=== PATIENT | female | born 1985 | race Caucasian/White ===

== ENCOUNTER 2017-04-11 08:54 | Emergency (ER) | payer OTHER ==
[~2017-04-11] VITALS: Ht 172.7 cm; Wt 131.4 kg
[~2017-04-11 08:54] MED LIST: DOCU-41 PO; Docusate Sodium PO; FERR-83 PO; IBUP800T28 PO; Ibuprofen PO; OXYC1TAB24 PO; Oxycodone/Acetaminophen PO; no meds
[2017-04-11 08:56] VITALS: BP 144/93; PULSE 91; RESP 18; O2SAT 99
--- NOTE | 2017-04-11 09:16 | ED.REPORT ---
HPI-Extremity Problem Lower Date of Service Apr 11, 2017 ED Provider: Dr. Armstrong Pt is a generally healthy 32 week 32 y/o female presenting to the ED c/ o right lateral buttock pain radiating to the knee onset yesterday. The patient was experiencing mild pain last night at work which gradually increased throughout the evening and has persisted this morning. Her pain is exacerbated by walking or movement. She denies any injury or history of similar symptoms. Pt denies edema, fever, chills, numbness, weakness, rash. She tried Tylenol this morning without relief. She has no history of complications or history of PE or DVT. Nursing Notes Stated Complaint: RT OUTSIDE THIGH PAIN Chief Complaint: General Complaint Nursing Notes Reviewed: Yes ([id number] outdoors, Nanobiotix not reconciled) Allergies: Coded Allergies: latex (Verified Allergy, Unknown, Rash,Itching,, 01/26/16) Scheduled PRN Hydrocodone-Acetaminophen 5-325 mg (Hydrocodone-Acetaminophen 5-325 mg) 1 Each Tablet 1-2 TABLET PO Q4H PRN PRN For Pain Miscellaneous Medications Pnv No.122/Iron/Folic Acid ( Multi Tablet) 27 Mg Iron-800 Mcg Tablet 1 EACH PO General Time Seen by MD: 09:15 Chief Complaint Other (r buttock pain) Hx Obtained From: Patient Arrived By: Walk-in Onset Occurred: 9 - 12 hours ago Symptom Duration: Since onset Location: : Hip right Quality: Painful Severity: Current: Mild Severity: Maximum: Moderate Exacerbated by: Range of motion Recent Healthcare: No recent hospitalization Similar Sx Previous: No Past Medical History Past Medical History Healthy, currently (03/2017) Past Surgical History Reports: Smoking History Current Some Day Smoker Social History Alcohol Use: Denies alcohol use Drug Use: Denies drug use Ambulatory Status Independent Review of Systems Constitutional: Denies: Chills, Fever Musculoskeletal: Reports: Extremity pain, Denies: Extremity swelling Skin: Denies Rash Neurologic: Denies: Numbness, Weakness Complete sys rev & neg: except as marked. Physical Exam Initial Vital Signs Vital Signs (First) Date Time Temp Pulse Resp B/P Pulse Ox O2 Delivery O2 Flow Rate FiO2 04/11/17 08:56 36.6 91 18 144/93 99 Room Air Initial VS: Reviewed, Vital signs normal Head / Eyes: Atraumatic, Normocephalic, PERRL ENT: Mucous membranes moist, Conjunctiva normal, No scleral icterus Neck: Supple, Full range of motion Respiratory: Breath sounds normal, Clear to auscultation, No respiratory distress Cardiovascular: Regular rate & rhythm, Heart sounds normal, Intact distal pulses Upper Extremities: Vascular intact, Neuro intact, No swelling Skin: Warm, Dry, No cyanosis Neurologic: Alert, Oriented, Nonfocal Psychiatric: Mood/affect normal, Behavior normal, Normal thought content Lower Extremity / Pelvis / MS: Atraumatic, Inspection NL, Full range of motion , No swelling, Non-tender, No erythema, No deformity, Neurologic intact, Vascular intact, No ligamentous injury, Tendon function NL, No compartment syndrome, No circumferential injury, No edema, Pelvis stable, Pelvis non-tender Ankle / Foot: Atraumatic, Inspection NL, Full range of motion, No swelling, No erythema, Non-tender, No deformity, Neurologic intact, Vascular intact, No ligamentous injury, Tendon function NL, No compartment syndrome, No circumferential injury, No edema General/Constitutional: Awake, Alert, No acute distress, Well appearing, Cooperative, Not toxic appearing Abdomen: Atraumatic, Soft, Non-tender, No guarding, No rebound Gravid Back: Full range of motion, Painless range of motion, Straight leg raise neg Interpretation & Diagnostics US Focused Lower Ext Venous Exam Performed by: Allied health pract Exam Interpreted by: Allied health pract Indication: Leg pain right Interpretation: No evid deep vein thromb Re-Eval/Medical Decision Med Decision/Clinical Course This is a 32-year-old female who third trimester presents to plan of right thigh pain started yesterday, no clear trauma, the worsened this morning. She has no previous history of DVT or PE, his only risk factor for DVT is . She denies pain radiation below the knee to suggest sciatica, denies bowel or bladder dysfunction, denies fevers or chills. She has no abdominal complaints. She has not noted any swelling. On exam, she has some soreness with movement, but is fairly minimal and is neurovascularly intact without overt swelling. She has a negative straight leg raise. The rest of her exams normal. She had no relief with Tylenol. Her CO2 hydrocodone with improvement. An ultrasound of right leg was obtained was negative. I do not appreciate signs of DVT, cellulitis, abscess, with ultrasound negative and not finding indication for additional testing. Patient's comfortable with discharge to home. Routine precautions reviewed. Source of Hx: Old records Re-Evaluation/Progress : Time of Eval: 11:41 Re-Evaluation/Progress Note: Pt rechecked. Discussed imaging results. Informed pt of plan for treatment. Pt understands and agrees with plan for treatment. F/U instructions and RTER warnings given. All questions addressed. Differential Diagnosis: Negative: Abrasion, Abscess, Achilles tendon rupture, Ankle dislocation, Arterial occlus/ischemia, Femur fracture, Fibular fracture, Fracture, Hip fracture, Knee disloc ant, Knee disloc post, Knee effusion, Knee ligament injury, Venous thromboembolism Counseled Regarding: Diagnosis, Need for follow-up, When/why to return to ED Discharge & Departure Impression: Primary Impression: Musculoskeletal pain of right thigh Additional Impression: Weeks of gestation: unspecified Qualified Code: Z33.1 - state, incidental Disposition: Home Discharge Condition All VS Reviewed: Yes Condition: Stable Additional Instructions: 1. A dangerous cause the pain was not identified. 2. The ultrasound was negative for blood clot such as a DVT, or findings of infection. 3. Activities as tolerated, although take it easy. 4. If needed for pain and take hydrocodone/APAP 5/325 1-2 tabs up to every 6 hours. NOTE: His medication does contain some Tylenol, it also contains a narcotic and causes some dizziness and drowsiness. Use sparingly, and no driving for at least 4 hours after taking 5. Apply warm packs for comfort. 6. Return if new or worsening symptoms occur. Symptoms are expected to resolve with time. Referrals: Aquilino Mclaughlin MD (PCP) [place] Attestation Portions of this note were transcribed by Andrei Mcfarland. I, Dr. Armstrong personally performed the history, physical exam and medical decision-making; I reviewed and confirmed the accuracy of the information in the transcribed note. Signed by Aurelio Hull, 04/11/17 - 1000 copies to: Aquilino Mclaughlin MD, Matthew F MD Apr 11, 2017 09:16 ANDREI MCFARLAND Apr 11, 2017 09:34
[2017-04-11] MEDS ORDERED: HYDROcodone-APAP 5-325 mg Tablet PO ONE (09:35)
[2017-04-11] MEDS ORDERED: PNV1TABL81 PO (09:50)
[2017-04-11] MEDS ORDERED: HYDR-4003 PO (11:45)
[2017-04-11 12:03] VITALS: BP 132/65; PULSE 77; RESP 16; O2SAT 98
--- NOTE | 2017-04-11 12:43 | DRSVH ---
PROCEDURE: US VEINOUS LEG DUPLEX UNILATERAL, RIGHT INDICATIONS: RLE pain r/o DVT TECHNIQUE: Real-time imaging, as well as color and pulse Doppler interrogation, were performed of the lower extr emity deep veins from the inguinal ligament to the popliteal fossa. COMPARISON: None. FINDINGS: The deep veins are normally compressible, and free of intraluminal thrombus. Color and pu lse Doppler demonstrate normal phasic intraluminal flow. There is normal augmentation response to di stal compression maneuver. IMPRESSION: No acute venous thrombosis in the right lower extremity. Dictated by: Charis Chau M.D. on 04/11/2017 at 12:41 Approved by: Charis Chau M.D. on 04/11/2017 at 12:42
== END 2017-04-11 12:04 | disposition home or self-care (01) ==
LOC: SED 08:54
DX: O26.893 Other specified pregnancy related conditions, third trimester (principal); M79.651 Pain in right thigh; O99.333 Smoking (tobacco) complicating pregnancy, third trimester; F17.200 Nicotine dependence, unspecified, uncomplicated; Z3A.32 32 weeks gestation of pregnancy; Z91.040 Latex allergy status

== ENCOUNTER 2017-05-25 05:45 | Inpatient (IN) | payer OTHER ==
[~2017-05-25] VITALS: Ht 172.7 cm; Wt 133.4 kg
[~2017-05-25 05:45] MED LIST changes: -DOCU-41 PO; -Docusate Sodium PO; -FERR-83 PO; +HYDR-4003 PO; -IBUP800T28 PO; -Ibuprofen PO; -OXYC1TAB24 PO; -Oxycodone/Acetaminophen PO; +PNV1TABL81 PO; -no meds
[2017-05-25] MEDS ORDERED: Carboprost 250 mCg/mL Inj IM PRN ×2 (06:00→11:15)
[2017-05-25] MEDS ORDERED: Oxytocin 10 Unit/mL Inj IM PRN ×2 (06:00→11:15)
[2017-05-25] MEDS ORDERED: Sodium Citrate-Citric Acid 15 mL Solution PO SCH (06:00)
[2017-05-25] MEDS ORDERED: Hemorrhage Kit, Post Partum XX ONE ×2 (06:00→11:15)
[2017-05-25] MEDS ORDERED: Methylergonovine 0.2 mg/mL Inj IM PRN ×2 (06:00→11:15)
[2017-05-25] MEDS ORDERED: CeFAZolin Inj 3 GM in IV Premix 1 EACH IV ONE (06:01)
[2017-05-25 07:15] LABS: Mean Corpuscular Hemoglobin 23.1 pg (27.0-35.0); Mean Corpuscular Volume 74.4 fL (81-100)
[2017-05-25] MEDS: Lactated Ringer's 1,000 ML IV SCH ×5 (07:42→22:35)
--- NOTE | 2017-05-25 08:12 | PCM.HPANE ---
Patient Data Date of Service: May 25, 2017 Surgeon Admitting Provider:Aquilino Mclaughlin MD Attending Provider:Aquilino Mclaughlin MD Primary Care Physician:Bessie Other Provider:Leandra Gay Anesthesia Reason for Visit repeat c/s repeat c/s Ht/WT & BMI Body Mass Index Allergies Coded Allergies: latex (Verified Allergy, Unknown, Rash,Itching,, 01/26/16) Past Anesthesia History Anesthesia History: Denies:: Abnormal Airway, Anesthesia Reactions, Difficult Intubation, Fam Anesthesia Reaction, Fam Malignant Hypertherm, Malignant Hyperthermia Diabetes History Hx Diabetes?: No Medications Active Scripts Hydrocodone-Acetaminophen 5-325 mg 1 Each Tablet1-2 Tablet PO Q4H PRN For Pain # 20 TABLET Ref 0 Prov:Curt Armstrong MD 04/11/17 Reported Medications Pnv No.122/Iron/Folic Acid ( Multi Tablet)27 Mg Iron-800 Mcg Tablet1 Each PO 04/11/17 History History of ENT Problems?: No HEENT History: Denies:: Abnormal Airway Cataracts Difficult Intubation Dysphagia Glaucoma Hearing Problem Sinus Problem TMJ Denture Type: None Teeth Condition: Within Normal Limits Hx of Heart Problems?: Yes Cardiovascular History: Positive for:: Hypertension Denies:: Congestive Heart Failure Hx of Respiratory Problem?: No Respiratory History: Denies:: Tuberculosis Hx Neurologic Problems?: No Neurological History: Denies:: Alzheimer's Disease CVA Dementia Dizziness Headaches Multiple Sclerosis Parkinson's Disease Peripheral Neuropathy Seizures TIA Hx of GI Problems?: No Gastrointestinal History: Denies:: Cirrhosis Diverticulitis Gall Bladder Disease Gastroesphageal Reflux Gastrointestinal Bleeding Heartburn Hepatitis Hiatal Hernia Liver Disease Rectal Bleeding Hx of Problems?: No Genitourinary History: Denies:: HX of Hemodialysis Kidney Stones Urinary Tract Infection Female Hx: Positive for:: Currently Hx Musculoskeletal Problems?: No Musculoskeletal History: Denies:: Back Injury Degenerative Joint Fibromyalgia Joint Replacement Musculoskeletal Trauma Myasthenia Gravis Osteoarthritis Rheumatoid Arthritis Systemic Lupus Other History/Comment pt denies Lumbosacral radiculopathy, Hx Surgeries?: Yes (c section x 2) Hx Diabetes: No Hx Alcohol Use: NoHx Substance Use: No Smoking Status: Current Some Day Smoker Stop/Bang NAGI Risk Assessment: High Risk, =/>3 Yes Risk Assessment Category Category 1A: Patient has history of documented sleep apnea, and HAS NOT received any narcotic, sedative or anesthesia administration during this stay. Category 1B: Patient has history of documented sleep apnea, and HAS received any narcotic , sedative or anesthesia administration during this stay Category 2: Patient has SUSPECTED Obstructive Sleep Apnea, and HAS received any narcotic , sedative or anesthesia administration during this stay. Category 3: Patient has SUSPECTED Obstructive Sleep Apnea and HAS NOT received narcotic, sedative or anesthesia administration during this stay. Category 4: Outpatient in Procedural Areas with known sleep apnea or who screen positive for High Risk via the STOP/BANG questionnaire. Exam Exam General Appearance: Alert, Oriented X3, Cooperative, No Acute Distress HEENT/AIRWAY: MP 2 Lungs: Clear to Auscultation, Normal Air Movement Heart: Exam Unremarkable, Regular Rate/Rhythm, No Murmurs/Rubs/Gallops Additional Information Pt denies lumbosacral radiculopathy, coagulopathy, and Hx anticoag Meds/Labs/Diagnostics Admission Meds Current Medications Lactated Ringer's (Lr) 1,000 ml @ 125 mls/hr Q8H IV Last administered on t 07:42; Start 05/25/17 at 06:00; Stop 05/25/17 at 13:59 Labs Test 05/25/17 06:58 White Blood Count 9.5th/mm3 (3.8-10.1) Red Blood Count 4.25mil/mm3 (3.90-5.20) Hemoglobin 9.8g/dL (12.0-15.6) Hematocrit 31.6% (35.0-46.0) Mean Corpuscular Volume 74.4fL (81-100) Mean Corpuscular Hemoglobin 23.1pg (27.0-35.0) Mean Corpuscular Hemoglobin Concent 31.0% (32.0-37.0) Red Cell Distribution Width 17.2% (12.3-15.4) Platelet Count 281bil/L (150-400) Plan Impression Patient chart reviewed, patient interviewed and anesthestic plan with risks, benefits, and alternatives discussed, and informed consent obtained. NPO per Anesth. Guidelines: Yes ASA Physical Status: ASA2 Mod Systemic Disease Anesthetic Plan: SAB (ITN) Bene/Risks/Altern/Consents: Yes HP Complete Prior to Induction: Yes Cj Em DO May 25, 2017 08:12
[2017-05-25] MEDS ORDERED: Lactated Ringer's 1,000 ML IV PRN (08:16)
[2017-05-25] MEDS ORDERED: Atropine 0.4 mg/mL Inj IV PRN (08:20)
[2017-05-25] MEDS ORDERED: EPHEDrine Sulfate 50 mg/mL Inj IVPUSH PRN (08:20)
[2017-05-25] MEDS ORDERED: fentaNYL-PF 50 mCg/mL 2 mL Inj IVPUSH PRN (08:20)
[2017-05-25] MEDS ORDERED: Dexamethasone 4 mg/mL Inj IVPUSH PRN (08:20)
[2017-05-25] MEDS ORDERED: Ondansetron 2 mg/mL 2 mL Inj IVPUSH PRN (08:20)
[2017-05-25] MEDS ORDERED: Ketamine 10 mg/mL 20 mL Inj ONE (10:28)
[2017-05-25] MEDS ORDERED: fentaNYL-PF 50 mCg/mL 2 mL Inj ONE (10:28)
[2017-05-25] MEDS ORDERED: Morphine PF 1 mg/mL 10 mL Inj ONE (10:28)
[2017-05-25] MEDS ORDERED: Ondansetron 2 mg/mL 2 mL Inj ONE (10:28)
[2017-05-25] MEDS ORDERED: LANOlin HPA 7 Gm Ointment TOPICAL PRN (11:15)
[2017-05-25] MEDS ORDERED: hydrOXYzine Pamoate 25 mg Capsule PO PRN (11:15)
[2017-05-25] MEDS ORDERED: diphenhydrAMINE 50 mg Capsule PO PRN (11:15)
[2017-05-25] MEDS ORDERED: HYDROcodone-APAP 5-325 mg Tablet PO PRN (11:15)
[2017-05-25] MEDS ORDERED: Sodium Chloride LOK Flush 10 mL Syringe IVFLUSH PRN (11:15)
[2017-05-25] MEDS ORDERED: Oxytocin 30 Units/500 mL LR 30 UNITS in IV Premix 1 EACH IV PRN (11:15)
[2017-05-25] MEDS ORDERED: Oxytocin 30 Units/500 mL LR Premix IV ONE (11:22)
[2017-05-25] MEDS: Acetaminophen IV 1,000 MG in IV Premix 1 EACH IV PRN ×2 (13:27→20:08)
--- NOTE | 2017-05-25 18:05 | PCM.ANEP1 ---
Post Anesthesia PACU Phase 1 Assessment Date of Service: May 25, 2017 Anesthetic Administered: SAB Level of Alertness: Awake, talking CHANEY's with Equal Strength: Yes Pain: Yes Pain Scale Score: 9 Nausea or Vomiting: No CV Function & Hydration Stable: Yes Airway Device: Oxygen Delivery: Room Air Lungs: Clear to Auscultation, Normal Air Movement Dermatome Level: Full Sensation Summary apparent resolution of sensorimotor block PACU Phase 2 Assessment Complications: No Patient Instructions Provided: N/A Cj Em DO May 25, 2017 18:04
--- NOTE | 2017-05-25 19:15 | OP ---
[address] [address] OPERATIVE REPORT PATIENT: SARIKA BARBER : 1985 MR#: [id number] ADMIT: 05/25/2017 JOB ID: [id number] DATE OF SURGERY: 05/25/2017 PREOPERATIVE DIAGNOSIS(ES): 1. 4, para 2 female at 39-1/2 weeks estimated gestational age. 2. Previous x2. 3. Maternal obesity with a BMI of 45. POSTOPERATIVE DIAGNOSIS(ES): 1. 4, para 3 female now postop for repeat section. 2. Maternal obesity. 3. Nuchal cord x2, reduced on infant. 4. Severe scar tissue with bowel and ovary stuck down onto uterus. 5. Status post vertical incision in the uterus given the spatial constraints created by scar tissue. SURGERY: Repeat low transverse section via Pfannenstiel incision. SURGEON: Aquilino Mclaughlin MD. MAP CLERK: JOVAN Nance. INDICATIONS: The patient has had two prior C-sections. FINDINGS: 1. A 7 pound 4 ounce infant female, who at first had poor tone and poor cry but was within minutes in excellent condition. 2. Nuchal cord x2 reduced. 3. Severe scar tissue that included a left rectus abdominis muscle that was pulled way away from this central aspect of the patient's abdomen to the point that it could not be rejoined with the right portion. 4. Severe scar tissue onto the uterus that involved the right ovary and a section of bowel that were pinned to the right side of the uterus. 5. Mostly vertical incision on the uterus, status post surgery to remove baby from uterus. ESTIMATED BLOOD LOSS: 800 cc. INTRAVENOUS FLUIDS IN: 1700 cc of lactated Ringer's. URINE OUT: 1-200 cc of clear urine status post procedure. PATHOLOGY: The cord gases were sent just in case there was any issue, but revived in excellent fashion. DETAIL: The patient was taken back to the OR where spinal anesthesia was performed. At first the patient was having slow uptake of her spinal anesthesia and this was especially pronounced on the right side of her prior wound. We went ahead and prepped and draped in the usual fashion and did a procedural time-out. The Retentus drape was used to pull her abdomen up and away from the incision site. At this point, she was tested for adequacy of anesthesia, and the right side was still somewhat painful to the stimulation provided. For this reason, I injected 10 cc of 1% lidocaine with epi in it along the previous wound line. This was placed as I was about to open up and I want to make sure she had adequate skin anesthesia. This, along with more time, allowed for the spinal anesthesia resulted in excellent anesthesia for the case. The prior incision site was used as a starting point for this surgery and the knife was used to cut through the subcutaneous tissue down to the fascia. The fascia was present quite clearly, but underneath the fascia, when a horizontal incision was made in that layer, the muscle was only visible on the right. Fortunately this incision was made very carefully to avoid any underlying bowel. At this point, I dissected the fascia off the right side, away from the muscle, and the left side had no corresponding muscle between us and the underlying uterus. I also dissected superiorly and inferiorly in a way that opened up the abdomen for the surgical procedure. I did not do this extensively due to the fact that the left side of the patient's abdomen was largely open underneath the fascia and I did not want to incite further bleeding given the amount of scar tissue seen. We then stretched these layers to provide room for the surgery itself and the bladder blade was inserted. At this point, it was noted that the scar tissue was extensive back onto the uterus and only the left side of the uterus was accessible. Fortunately, there was a good amount of space to the left, even though this would require a somewhat angular incision of the uterus given the presence of the uterine arteries on the left side. In retrospect this angular incision was actually more vertical than anticipated but was the only place that the uterus could be entered safely. Care was made to avoid the underlying bladder. The incision was made with a knife, but final entry into the uterus was done with the back of the knife. I extended this incision after clear fluid was obtained. This extension was done using the bandage scissors. Again, I was careful not to include the right side of the uterus where the bowel was stuck onto the lower uterine segment along with the right ovary and ligament. Once this incision was opened up, the infant delivered relatively easily despite the two nuchal cords that were reduced just prior to delivery of the shoulders and body. The infant did not have excellent tone, and so the cord was clamped and cut immediately and the was handed off to the waiting nurses and respiratory therapist. Stimulation was done of the infant at the warmer. I did go ahead and collect cord gases at this time. Cord blood was also sent for analysis of blood type. The placenta was manually extracted. The uterus was then exteriorized and cleared of all membranes and debris. Pitocin was started and the uterine tone was excellent right from the start. A bladder blade was reinserted and the vertical nature of the incision was noted. A 1-0 chromic was used in a running, locked fashion to close the initial lower layer of the uterine muscle. The upper layer was then closed with a second imbricating layer. This did involve the reflection of the peritoneal layer onto the uterus and bleeding after this secondary closure was found to be minimal. I did place a [id number] suture more to the right and inferior on the uterine incision to stop one of the bleeders. The pelvis and abdomen were irrigated. Once this had been done, the uterus was replaced back into the abdomen. This caused the patient much discomfort and her bowel became present within the surgical field. Putting it back also caused the patient much discomfort. At this point, we stopped the procedure and waited for anesthesia to add additional agents which are noted in his notes. The additional agents seemed to really help the patient and she was able to rest while we completed the procedure and we were able to place the bowel correctly and gently back in place. No additional bleeding was noted at this point on the uterine incision. Interceed was used to prevent further scarring. At this point, I noted that there was still no real way to pull the left abdominal muscles centrally from the remote location. I was able to inferiorly attach them to the inferior portion of the fascia as well as the right muscle in an effort to avoid too much additional pull on the right side of the abdominal muscle while still protecting the lower pelvis and the bladder underneath. Once this was done, I did not see any way to bring the muscle together higher up on her abdomen. For this reason, I closed fascia at this point, starting with 0-Vicryl suture. This was done in a running fashion. This was a very secure layer. Bleeders in the subcutaneous tissue were stopped using the Bovie and the subcutaneous tissue was then irrigated. I added an additional suture line in the subcutaneous tissue with some of my remaining 1-0 chromic suture. This was deep enough that it would not irritate the wound. It did help bring the wound together better so that additional scarring would be minimal. I did note that there were several areas where the wound dove down from prior scar tissue. The wound edge was undermined at this point and bleeders were stopped using the Bovie. The skin was closed using jacklyn and a pressure dressing was applied. The patient was in excellent condition following the procedure though somewhat sleepy. I did explain to her and her separately what had happened, and what the risks of further would be. I did recommend that they not get again even though we did not tie her tubes since this was not consented for prior to the procedure. Both she and her expressed understanding. The counts were noted to be correct x2. There were no additional complications and the patient was recovering in her preoperative room at the time that I left the hospital.
[2017-05-26] MEDS: oxyCODONE-Acetamin 5-325 mg Tablet PO PRN ×5 (00:01→19:45)
[2017-05-26 06:27] LABS: Mean Corpuscular Hemoglobin 22.7 pg (27.0-35.0); Mean Corpuscular Volume 76.1 fL (81-100)
--- NOTE | 2017-05-26 09:45 | PCM.PNOBPP ---
Subjective Date of Service May 26, 2017 Post : Repeat Ceserean Delivery Lochia: Normal Pain Management: PO pain meds Gastrointestinal: Good Appetite, Passing Flatus Postop Activity: Ambulating Independently Labs Laboratory Tests 05/26/17 05:54: White Blood Count 8.9, Red Blood Count 3.39, Hemoglobin 7.7, Hematocrit 25.8, Mean Corpuscular Volume 76.1, Mean Corpuscular Hemoglobin 22.7, Mean Corpuscular Hemoglobin Concent 29.8, Red Cell Distribution Width 17.3, Platelet Count 219 Exam Vital Signs Vital Signs: VS reviewed, stable Exam Abdomen: Fundus firm Extremities: No cords Lungs: Clear to Auscultation Heart: Exam Unremarkable General: Alert, Oriented X3 Surgical Wound : Incision General Appearence: Romulo Dressing & Drainage Status: Dry & Intact OB Post Assessment/Plan Problems: (1) Status post repeat low transverse section Status: Acute ICD Code: Z98.89 Pain Evaluation: Adequate Pain Control Post plan: Continue routine post care, Discharge home tomorrow Aquilino Mclaughlin MD May 26, 2017 09:45
[2017-05-26] MEDS: Ascorbic Acid 500 mg Tablet PO SCH (10:12)
[2017-05-27] MEDS: oxyCODONE-Acetamin 5-325 mg Tablet PO PRN ×5 (00:21→18:20)
[2017-05-27] MEDS: Ascorbic Acid 500 mg Tablet PO SCH (08:20)
--- NOTE | 2017-05-27 08:44 | PCM.PNOBPP ---
Subjective Date of Service May 27, 2017 Post : Repeat Ceserean Delivery Lochia: Normal Pain Management: PO pain meds Gastrointestinal: Good Appetite, Passing Flatus Postop Activity: Ambulating Independently Labs Laboratory Tests 05/26/17 05:54: White Blood Count 8.9, Red Blood Count 3.39, Hemoglobin 7.7, Hematocrit 25.8, Mean Corpuscular Volume 76.1, Mean Corpuscular Hemoglobin 22.7, Mean Corpuscular Hemoglobin Concent 29.8, Red Cell Distribution Width 17.3, Platelet Count 219 Exam Vital Signs Vital Signs: VS reviewed, stable Exam Abdomen: Fundus firm Perineum: Intact Lungs: Clear to Auscultation General: Alert, Oriented X3 Surgical Wound : Incision General Appearence: [place], Incision Healing, No Discharge Dressing & Drainage Status: Dressing Removed OB Post Assessment/Plan Problems: (1) Status post repeat low transverse section Plan: Too much discomfort and gas to d/c today. Will get her up and moving more today. Status: Acute ICD Code: Z98.89 (2) anemia Plan: Iron and vitamin C Status: Acute ICD Code: O90.81 Pain Evaluation: Adequate Pain Control Post plan: Continue routine post care, Discharge home tomorrow Aquilino Mclaughlin MD May 27, 2017 08:44
[2017-05-28] MEDS: oxyCODONE-Acetamin 5-325 mg Tablet PO PRN ×2 (00:56→06:10)
--- NOTE | 2017-05-28 08:07 | PCM.DC.OB ---
Obstetrical Discharge Summary Date of Service May 28, 2017 Date of hospital admission May 25, 2017 at 05:45 Date of Discharge: May 28, 2017 Providers Admitting Physician: Aquilino Mclaughlin MD Primary Care Physician: Nopcp Attending Physician: Aquilino Mclaughlin MD Problems: (1) Status post repeat low transverse section Status: Acute ICD Code: Z98.89 (2) anemia Status: Acute ICD Code: O90.81 Consultations none Invasive procedures Repeat LTCS Date of Procedure: May 25, 2017 Hospital Course: Patient presented for section. Had a difficult due to her weight and scar tissue. Recovered slower than expected...due to weight and blood loss. No complications however. Hydrocodone-Acetaminophen 5-325 mg (Hydrocodone-Acetaminophen 5-325 mg) 1 Each Tablet 1-2 TABLET PO Q4H PRN PRN For Pain Prescribed by: TSERING CRUMP MD Pnv No.122/Iron/Folic Acid ( Multi Tablet) 27 Mg Iron-800 Mcg Tablet 1 EACH PO (Reported) Follow-up plan See me in 2 weeks Discharge Diet: No restrictions Discharge Activity-General: Try not to overdue, Be up and about, Balance rest and activity, Activity as energy allows, No lifting >15 pounds for 2 weeks Aquilino Mclaughlin MD May 28, 2017 08:07
--- NOTE | 2017-05-28 08:09 | PCM.DIOB ---
Obstetrical Disch Instruction Date of Service: May 28, 2017 Dates of Hospitalization Date of Hospital Admission May 25, 2017 at 05:45 Providers Admitting Physician: Aquilino Mclaughlin MD Primary Care Physician: Nopcp Attending Physician: Aquilino Mclaughlin MD Discharge Diagnosis Problems: (1) Status post repeat low transverse section Status: Acute ICD Code: Z98.89 (2) anemia Status: Acute ICD Code: O90.81 Diet Discharge Diet: No restrictions Activity Discharge Activity-General: Pelvic Rest for 6 weeks, Balance rest and activity , Activity as pain allows, No lifting >10 pounds for 4-6 weeks Dressing and Incisional Care Dressing Care: Allow Steri Stripes to fall off Hygiene: May shower, DO NOT soak incision under water, NO bathtub, hot tub or whirlpool Follow Up Plan Follow-up Provider (F9): Aquilino Mclaughlin MD Follow-up appointment: Weeks (2) Aquilino Mclaughlin MD May 28, 2017 08:09
[2017-05-28] MEDS ORDERED: FERR-74 PO (08:12)
[2017-05-28] MEDS ORDERED: IBUP800T28 PO (08:12)
[2017-05-28] MEDS ORDERED: OXYC1TAB24 PO (08:12)
[2017-05-28] MEDS ORDERED: DOCU-41 PO (08:12)
[2017-05-28 08:24] VITALS: BP 117/62; PULSE 68; RESP 18
[2017-05-28] MEDS ORDERED: diphenhydrAMINE 25 mg Capsule PO PRN (08:24)
[2017-05-28] MEDS: Ascorbic Acid 500 mg Tablet PO SCH (08:49)
== END 2017-05-28 14:56 | disposition home or self-care (01) | DRG 765 ==
LOC: FBC 05:45 → EDSTATUS 07:15
PROVIDERS: ADMIT Family Medicine; ATTEND Family Medicine
PROC: 0UN90ZZ Release Uterus, Open Approach (ICD-10-PCS; 2017-05-25)
PROC: 10D00Z1 Extraction of Products of Conception, Low, Open Approach (ICD-10-PCS; principal; 2017-05-25 07:15)
DX: O34.211 Maternal care for low transverse scar from previous cesarean delivery (principal); Z68.42 Body mass index [BMI] 45.0-49.9, adult; Z3A.39 39 weeks gestation of pregnancy; O99.213 Obesity complicating pregnancy, third trimester; N85.8 Other specified noninflammatory disorders of uterus; Z37.0 Single live birth; O90.81 Anemia of the puerperium